=== PATIENT | female | born 1945 | race Caucasian/White ===

== ENCOUNTER 2016-08-04 05:19 | Inpatient (IN) | payer MEDICARE, BC ==
--- NOTE | 2016-07-15 16:47 | NUR ---
PMH, allergies, meds reviewed and documented. Preop and DOS instructions given including handouts of medications to stop before surgery, shower instructions and CHG, letter from Dr Mayen, ortho consent, Surgical Services pamphlet, and my contact information.
--- NOTE | 2016-07-21 14:00 | NUR ---
JOINT REPLACEMENT PREOP CLASS PATIENT ATTENDED JOINT REPLACEMENT PREOP CLASS. CASE MANAGEMENT CONTACT INFORMATION PROVIDED. EDUCATION WAS PROVIDED REGARDING WHAT TO EXPECT BEFORE, DURING AND AFTER SURGERY. INCLUDING: OVERVIEW OF ANATOMY AND PHYSIOLOGY HOSPITAL TREATMENT SCHEDULE THERAPY DEMONSTRATION CASE MANAGEMENT RESPONSIBILITIES DISCHARGE PLANNING EQUIPMENT NEEDS JOINT REPLACEMENT WORKBOOK ANTI-COAGULATION SURGERY STRONG NUTRITIONAL PROTOCOL DISCHARGE INSTRUCTIONS [facility] PAT[place] PORTAL, WITH INSTRUCTIONS CJR AND PREOP SURVERY PREOP BATHING- CHG GIVEN ALL PATIENT'S QUESTIONS ANSWERED TO THEIR SATISFACTION. PATIENTS AND COACHES ENCOURAGED TO CALL WITH ANY ADDITIONAL QUESTIONS OR CONCERNS. CM FOLLOWING FOR TRANSITIONAL CARE PLANNING NEEDS DURING HOSPITALIZATION.
[2016-08-04] VITALS (29 sets, daily range): BP systolic 109–173; BP diastolic 56–88; PULSE 68–101; RESP 12–17; TEMP 95.8–98.4; O2SAT 90–100; Ht 160 cm; Wt 76.4 kg
[~2016-08-04] VITALS: Ht 160 cm; Wt 76.4 kg
[~2016-08-04 05:19] MED LIST: ACET-3088 PO; ATEN25TA PO; BUPR300T59 PO; CALC600T12 PO; DIPH50CA44 PO; MONT10TA25 PO; SIMV20TA2 PO; SUCR1TAB PO; VITA1CAP PO
[2016-08-04] MEDS ORDERED: LIDOCAINE 1% (10mg/ml) 2ml SDV SQ ONE (06:00)
[2016-08-04] MEDS ORDERED: MELOXICAM 15 MG TABLET PO ONE (06:00)
[2016-08-04] MEDS ORDERED: FAMOTIDINE 20mg IVPB 50 ML IV ONE (06:00)
[2016-08-04] MEDS ORDERED: METOCLOPRAMIDE 10mg/2ml INJECTION IV ONE (06:00)
[2016-08-04] MEDS ORDERED: VANCOMYCIN 1 GRAM INJECTION ONE (06:56)
[2016-08-04] MEDS ORDERED: DEXAMETHASONE 4mg/ml - 1ml INJECTION IV ONE (07:00)
[2016-08-04] MEDS ORDERED: LR 1,000 ML IV SCH (07:00)
[2016-08-04] MEDS ORDERED: ONDANSETRON 4mg/2ml INJECTION IV ONE (07:00)
[2016-08-04] MEDS ORDERED: NOZIN NASAL SWAB NS ONE ×2 (07:00→09:45)
[2016-08-04] MEDS ORDERED: ACETAMINOPHEN 500 MG TABLET PO ONE (07:00)
--- NOTE | 2016-08-04 07:26 | PDHPBRIEF ---
History and Physical Update Date DATE: 08/04/16 TIME: 07:26 I evaluated this patient and found no changes in the history and clinical exam findings. The recommendations and treatment plan is also unchanged from the previous documentation. BARBY NORRIS Aug 04, 2016 07:26
[2016-08-04] MEDS ORDERED: MIDAZOLAM 2mg/2ml INJECTION ONE (07:37)
[2016-08-04] MEDS ORDERED: PROPOFOL 500mg 50 ML IV ONE (07:37)
[2016-08-04] MEDS ORDERED: DEXAMETHASONE 4mg/ml - 1ml INJECTION ONE (07:55)
[2016-08-04] MEDS ORDERED: SALINE FLUSH 10ml SYRINGE ONE (07:55)
[2016-08-04] MEDS ORDERED: ONDANSETRON 4mg/2ml INJECTION ONE (07:55)
[2016-08-04] MEDS ORDERED: PHENYLEPHRINE 10mg/ml INJECTION ONE (07:55)
[2016-08-04] MEDS ORDERED: CLINDAMYCIN 900mg IVPB 50 ML IV ONE (08:15)
[2016-08-04] MEDS ORDERED: TRANEXAMIC ACID 1,000 MG in NORMAL SALINE 100 ML IV ONE ×2 (08:15→09:15)
--- NOTE | 2016-08-04 08:35 | ANESPREOP ---
Anesthesia Record Date and Time * DATE: 08/04/16 TIME: 714 Proposed Surgical Procedure RT TKA Allergies: Coded Allergies: ceftriaxone (Verified Allergy, Unknown, HIVES, 08/04/16) Ht/Wt/BMI Height: 5 ' 3.00 " Weight: 70.900 kg BMI: 27.7 kg/m2 Vital Signs Date Time Temp Pulse Resp B/P Pulse Ox O2 Delivery O2 Flow Rate FiO2 08/04/16 05:40 98.4 76 14 173/76 97 Room Air Medications Inpatient Medications Current Medications Medications (Trade) Dose Ordered Sig/Rachna Start Time Stop Time Status Last Admin Dose Admin Lactated Ringer's (Lactated Ringers) 1,000 ml @ 50 mls/hr Q20H 08/04/16 07:00 08/04/16 06:36 50 MLS/HR Acetaminophen (Tylenol Arthritis) 650 Mg Tablet.er, 1 TAB PO DAILY, (Reported) Last Taken: on 08/03/16629 Atenolol (Atenolol) 25 Mg Tablet, 1 TAB PO DAILY, (Reported) Last Taken: on 08/04/16429 Bupropion HCl (Bupropion Xl) 300 Mg Tab.er.24h , 1 TAB PO DAILY, (Reported) Last Taken: on 08/03/16629 Calcium Carbonate (Calcium) 600 Mg Tablet, 1 TAB PO DAILY, (Reported) Last Taken: on 08/03/16629 Diphenhydramine HCl (Sleep Aid) 50 Mg Capsule, 1 CAP PO HS, (Reported) Last Taken: on 08/03/162199 Montelukast Sodium (Montelukast Sodium) 10 Mg Tablet, 10 MG PO DAILY, (Reported) Last Taken: on 08/03/16629 Simvastatin (Zocor) 20 Mg Tablet, 20 MG PO HS, (Reported) Last Taken: on 08/03/162199 Sucralfate (Sucralfate) 1 Gm Tablet, 1 GM PO ACHS, (Reported) Take 1 tablet, by mouth, 4 times a day (Before meals and at BEDTIME). Last Taken: on 08/03/162029 Vitamin B Complex (Vitamin B Complex) 1 Each Capsule, 1 CAP PO DAILY, (Reported) Last Taken: on 08/03/16629 Currently on Beta Christen: Yes Beta Christen Last Taken: 08-04-16 @ 0430 Medical/Surgical History Anesthesia PMH: Reports: Arthritis (knees; back), Asthma (ALLERGY RELATED-NO INHALERS FOR YEARS), Pneumonia (HX OF, LAST TIME 1996), Reflux (well controlled) , Denies: Anesthesia Reactions, CVA/Stroke/TIA, Cancer, Glaucoma, Malignant Hyperthermia, Sleep Apnea Smoking Status: Never smoker Use Chewing Tobacco?: No Substance Use Type: does not use Last Drink: hours (ago) (8) HX of Last Menstrual Period: MANY YEARS AGO Past Surgical History Orthopedic Surgeries: Yes - LT KNEE ARTHROSCOPY Abdominal Surgeries: Genitourinary Surgeries: Yes - REMOVAL BLADDER CYST Cardiac Surgeries: Endocrine Surgeries: Reproductive Surgeries: Yes - TUBAL LIGATION Neurological Surgeries: Ear Surgeries: Nose Surgeries: Throat Surgeries: Other Surgeries: Anesthesia Adverse Reactions: FOUND none Family Hx of Anesthesia Advers: none Hx of Motion Sickness: Yes Physical Exam Respiratory: Lungs clear Cardiovascular: FOUND Regular rate, rhythm Airway Assessment Mallampati Score: II TMD: 3 Fingerbreadths Neck Extension: Good Overall Assessment: No Airway Concerns ASA: 3 Plan Anesthesia Plan: TIVA Regional: Spinal Discussion Discussed risks/options/alternatives of anesthesia and questions answered. Patient consents. Nursing pain assessment noted. Present: Children, Spouse Attestation Statement Prior to the delivery of any anesthetic medication, I examined the patient, developed the plan, obtained the patient's consent and discussed the risk and benefits of the procedure with the patient/guardian. COLLIN JAMESON CRNA Aug 04, 2016 08:35
[2016-08-04] MEDS ORDERED: ONDANSETRON 4mg/2ml INJECTION IV PRN ×2 (08:45→09:45)
[2016-08-04] MEDS ORDERED: HYDROMORPHONE 2mg/ml INJECTION IV PRN (08:45)
[2016-08-04] MEDS ORDERED: EPINEPHRINE 0.25 MG, BUPIVACAINE 0.25% 75 MG, MORPHINE SULFATE 15 MG, KETOROLAC 60 MG i... INJ ONE ×5 (09:15)
--- NOTE | 2016-08-04 09:18 | PDOPERATE ---
Operative Report Date of Operation 08/04/16 Side: Right Preoperative Diagnosis: knee primary DJD Postoperative Diagnosis Same as preoperative diagnosis. Operation/Procedure: total knee arthroplasty (right) Surgeon Aj Mayen MD [employer] Lieutenant LENA Fong Complications None. Regional Block: Spinal Estimated Blood Loss See Anesthesia Record. Fluids Please See Anesthesia Record. Description of Operation Ms. Cuenca and her right knee were identified and marked in the the preoperative holding area. She was then brought back to the operating suite and proper anesthesia was administered. She was then positioned supine on the operating table. The right lower extremity was then prepped and draped in my normal sterile fashion. Timeout was performed with all operating room personnel. The leg was exsanguinated and tourniquet inflated 250 mmHg. A standard anterior incision followed by a medial parapatellar approach was utilized. The majority of her arthritis was underneath the patella as well as in the trochlea. A distal femoral cut was made in 5 of valgus using intramedullary guide. The femur was sized at a 3 and rotation set using the epicondylar axis. Distal femoral cuts were performed. The tourniquet was then let down. A proximal tibial cut was made using extramedullary guide. Remaining osteophytes and meniscus were removed. Gaps were checked and they were well balanced and rectangular after a partial release of the PCL and a larger medial release. Trial components were placed with a 9 mm spacer. This allowed for full range of motion and the patella tracked well. The knee was stable throughout range of motion. The patella was resurfaced with the knee in extension to a size 29. The tibia rotation was then marked and the tibia stamped at the proper rotation at a size 3. The bone was prepared for cementing and all components cemented into place and allowed to cure in extension. Betadine solution was used for 3 minutes during the curing period and then fully irrigated out with 1 L of normal saline. Hemostasis obtained with electrocautery. After the cement had cured the knee was taken through range of motion check for balance and stability which were good. Vancomycin powder was placed into the wound. The arthrotomy was closed with #1 Vicryl. The remainder of the wound was then closed by my animal assistant utilizing 2-0 vycral in the subcutaneous tissue. 4-0 monocryl was used in the subcuticular layer followed by dermabond and a sterile dressing. After closure the patient will be transferred to the recovery room under the care of anesthesia. NICOLE MAYEN MD Aug 04, 2016 09:18
[2016-08-04] MEDS ORDERED: HYDROMORPHONE 2mg/ml INJECTION ONE (09:35)
[2016-08-04] MEDS ORDERED: METOCLOPRAMIDE 10mg/2ml INJECTION IV PRN (09:45)
[2016-08-04] MEDS ORDERED: PRN ORDERS MC (09:45)
[2016-08-04] MEDS ORDERED: DiphenhydrAMINE 50 MG/ML INJECTION IV PRN (09:45)
[2016-08-04] MEDS ORDERED: DiphenhydrAMINE 25 MG CAPSULE PO PRN (09:45)
[2016-08-04] MEDS ORDERED: SENNOSIDES 8.6 MG TABLET PO PRN (09:45)
[2016-08-04] MEDS ORDERED: LORAZEPAM 1 MG TABLET PO PRN (09:45)
--- NOTE | 2016-08-04 10:09 | ANESPO ---
Post-Op Note Date 08/04/16 Time: 10:08 Status Pt Participated in Evaluation: Pt participated in person Vital Signs Date Time Temp Pulse Resp B/P Pulse Ox O2 Delivery O2 Flow Rate FiO2 08/04/16 05:40 98.4 76 14 173/76 97 Room Air Respiratory Function: Airway patent Cardiovascular Function: Regular pulse Mental Status: Alert/oriented Pain Level Intensity: 2 Unable to Assess Pain Due To: INTRA OP Hydration: Taking po fluids (ice chips) Complications during Recovery None apparent Follow-Up Instructions Instructions Per Surgeon COLLIN JAMESON CRNA Aug 04, 2016 10:09
--- NOTE | 2016-08-04 10:10 | ANESPD ---
Peripheral Nerve Blockade Physician: Nima Mayen MD Date: 08/04/16 Discussion Discussed risks/options/alternatives of anesthesia and questions answered. Patient consents. Nursing pain assessment noted. Block Start: 09:55 Block Stop: 10:02 Block Employed: Adductor Canal Indication: post-operative pain Approach: right side confirmed Position: supine Patient: Consent, risks/benefits discussed, Informed, post block act. discussed Monitors: EKG, SpO2, NIBP IV Sedation: No Sedation: Awake Initial Vital Signs First Documented Vital Signs Date Time Temp Pulse Resp B/P Pulse Ox O2 Delivery O2 Flow Rate FiO2 08/04/16 05:40 98.4 76 14 173/76 97 Room Air Post Vital Signs Vital Signs Date Time Temp Pulse Resp B/P Pulse Ox O2 Delivery O2 Flow Rate FiO2 08/04/16 05:40 98.4 76 14 173/76 97 Room Air Initial Pain Score: 2 Prep: chlorhexadine/ETOH Ultrasound Used?: Yes Injectate Ropivacaine (%): 0.5 Ropivacaine (mL): 20 Was Epi 1:200,000 Used?: No Injection Injection made incrementally with constant monitoring and aspiration every [5] ml. COLLIN JAMESON CRNA Aug 04, 2016 10:10
--- NOTE | 2016-08-04 10:35 | NUR ---
ARRIVAL PT TO ROOM 113 BY CART ACCOMPANIED BY PACU STAFF. PT TRANSFERRED SELF FROM CART TO BED. VS STABLE. PT ON RA. DENIES NAUSEA OR SOA. PT RATES PAIN AT 2/10. DENIES NEED FOR PAIN MEDICATION. PT HAS FULL FEELING IN LOWER EXTREMITIES. CALL LIGHT WITHIN REACH. BED ALARM ON. WILL CONTINUE TO MONITOR.
--- NOTE | 2016-08-04 10:48 | DI ---
Indication: ITS.REASON: POSTOP right knee replacement PROCEDURE: KNEE RIGHT 2 VIEW: Encounter: Initial Comparison: Right knee MRI dated June 30, 2016 Findings: Postoperative changes of right total knee replacement are seen. There is expected postoperative subcutaneous gas. No evidence of hardware failure or acute fracture. No retained radiopaque surgical instruments or sponges. Overlying material causing artifact. Impression: New right total knee prosthesis without evidence of immediate complication. .
[2016-08-04] MEDS: NORMAL SALINE 1,000 ML IV SCH (10:53)
--- NOTE | 2016-08-04 11:09 | NUR ---
CM CM IN TO VISIT WITH PT. SHE IS ALERT AND ORIENTED. HER SPOUSE IS PRESENT. PT PLANS TO RETURN HOME. SHE WILL DO OUTPT PT AT [facility]. SHE HAS FWW. SHE IS GIVEN CM CONTACT INFORMATION. Addendum: 08/04/16 at 1110 by YIFAN DE LA ROSA RN Amended: Links added.
[2016-08-04] MEDS: TRAMADOL 50 MG TABLET PO PRN ×3 (11:10→21:02)
[2016-08-04] MEDS: SUCRALFATE 1 G TABLET PO SCH ×3 (12:13→21:01)
[2016-08-04] MEDS: ACETAMINOPHEN 325 MG TABLET PO SCH ×3 (12:14→21:01)
[2016-08-04] MEDS: NOZIN NASAL SWAB NS SCH ×2 (14:03→21:02)
[2016-08-04] MEDS: CLINDAMYCIN 900mg IVPB 50 ML IV SCH ×2 (14:03→20:39)
--- NOTE | 2016-08-04 16:25 | NUR ---
STATUS PT A/O X3. UP WITH ASSIST OF ONE WITH WALKER AND GAIT BELT. PT AMBULATING VERY WELL. RATES PAIN 2-4/10. REQUESTS PAIN MEDICATION WHEN PAIN REACHES 4/10. DENIES NAUSEA, TOLERATING LIQUID AND PUDDING. WILL TRY REGULAR DIET AT SUPPER. PT ON RA, TOLERATING WELL. VS STABLE. PT ABLE TO VOID WITHOUT PROBLEM, ADEQUATE OUTPUT. VERY PLEASANT WITH ALL CARES. PT RESTING IN BED WITH ALARM. CALL LIGHT WITHIN REACH. WILL CONTINUE TO MONITOR.
[2016-08-04] MEDS: ASPIRIN *EC* 325mg TABLET PO SCH (21:01)
[2016-08-04] MEDS ORDERED: SENNOSIDES 8.6 MG TABLET PO SCH (22:00)
[2016-08-04] MEDS ORDERED: SIMVASTATIN 20 MG TABLET PO SCH (22:00)
[2016-08-05] VITALS: BP 112/65; PULSE 89; RESP 16; TEMP 95.9; O2SAT 98
[2016-08-05] MEDS: NORMAL SALINE 1,000 ML IV SCH (00:53)
[2016-08-05] MEDS: TRAMADOL 50 MG TABLET PO PRN ×2 (01:41→10:27)
[2016-08-05] MEDS: CLINDAMYCIN 900mg IVPB 50 ML IV SCH (02:16)
--- NOTE | 2016-08-05 02:49 | NUR ---
Chart Check 24 hour chart check completed
[2016-08-05 03:57] VITALS: BP 106/64; PULSE 91; RESP 14; TEMP 97.8; O2SAT 99
[2016-08-05 05:16] LABS: HCT - HEMATOCRIT 28.2 % (36-46); HGB - HEMOGLOBIN 9.6 GM/DL (12-16); MEAN CORPUSCULAR HGB 29.1 UUG (26-34); MEAN CORPUSCULAR VOLUME 85.5 UM3 (80-100); MEAN PLATELET VOLUME 10.4 UM3 (9.4-12.4); RED BLOOD COUNT 3.3 M/MM3 (4.00-5.20)
[2016-08-05 05:27] LABS: ANION GAP 9 MEQ/L (5-15); BUN/CREATININE RATIO 26 RATIO (6-26); CALCIUM 8.7 MG/DL (8.4-10.2); CHLORIDE 109 MEQ/L (98-107); CO2 - CARBON DIOXIDE 23 MEQ/L (22-30); GLOMERULAR FILTRATION RATE 55; GLUCOSE 144 MG/DL (65-110); POTASSIUM 4.3 MEQ/L (3.6-5); SODIUM 141 MEQ/L (134-144)
[2016-08-05] MEDS: SUCRALFATE 1 G TABLET PO SCH ×2 (06:00→12:01)
[2016-08-05] MEDS: NOZIN NASAL SWAB NS SCH (06:00)
--- NOTE | 2016-08-05 06:11 | NUR ---
STATUS PATIENT A/OX3. PATIENT C/O PAIN AT RT KNEE, RATED 2-4/10. PRN TRAMADOL WAS GIVEN .PATIENT IS ABLE SLEEP OFF AND ON BETWEEN CARES.ON ROOM AIR. DENIES CHEST PAIN,SOA,OR N/V. PATIENT AMBULATED TO BATHROOM WITH WALKER BY ONE STANDBY ASSISI. ADEQUATE URINARY OUTPUT. POLAR PAD USED AT RT KNEE.HONEY GRAHAMS CRACKERS AND PEANUT BUTTER WAS GIVEN PER PATIENT REQUESTED. BED ALARM ON. CONTINUE TO MONITOR.
[2016-08-05 08:00] VITALS: PULSE 91; RESP 14
[2016-08-05] MEDS: MELOXICAM 15 MG TABLET PO SCH ×2 (08:00→08:12)
[2016-08-05] MEDS: ASPIRIN *EC* 325mg TABLET PO SCH (08:11)
[2016-08-05] MEDS: ACETAMINOPHEN 325 MG TABLET PO SCH ×2 (08:14→12:44)
[2016-08-05 08:32] VITALS: BP 125/60; PULSE 100; RESP 18; TEMP 96.9; O2SAT 99
--- NOTE | 2016-08-05 08:35 | PDORTHOPN ---
Subjective Date DATE: 08/05/16 TIME: 08:30 Subjective Cindi is doing very well. Pain is very minimal. No major complaints. She anticipates discharge today. Objective Vital Signs Vital signs Vital Signs 08/04/16 08/04/16 08/05/16 08/05/16 21:39 23:24 00:00 03:57 Temp 95.8 97.1 95.9 97.8 Pulse 101 94 89 91 Resp 16 16 14 B/P 150/78 126/69 112/65 106/64 Pulse Ox 98 98 98 99 O2 Delivery Room Air Room Air Room Air Room Air Height (Feet): 5 Height (Inches): 3.00 Weight (Kilograms): 70.900 General General Appearance: No Acute Distress Respiratory (Brief) Respiratory Brief: FOUND: non-labored Cardiovascular (Brief) Cardiac: FOUND: pedal pulses intact Surgical Site Incision: FOUND: Mepilex dressing intact, no drainage Neurologic (Brief) Neurological Brief: FOUND: extremities w/o deficits, neuro intact Psychiatric (Brief) Psychiatric Brief: FOUND: alert, no acute distress Laboratory Laboratory Laboratory Tests 08/05/16 04:49 Laboratory Tests 08/05/16 04:49 Assessment & Plan Problems: (1) Degenerative arthritis of right knee Status: Chronic Qualifiers: Osteoarthritis type: primary Qualified Codes: M17.11 - Unilateral primary osteoarthritis, right knee Assessment & Plan: Aspirin protocol for VTE prophylaxis. SCD's. PT/OT services to improve independent function. Discharge Planning per Case Management. D/C [facility] due to intolerance in the past. Hospital Course Summary Disclaimer The visit summary below is not to be considered part of the above Progress Note. BARBY NORRIS Aug 05, 2016 08:34
[2016-08-05] MEDS ORDERED: MONTELUKAST 10 MG TABLET PO SCH (09:00)
[2016-08-05] MEDS ORDERED: BuPROPion XL (24 HR) 300 MG TABLET PO SCH (09:00)
[2016-08-05] MEDS ORDERED: POLYETHYL.GLYCOL 3350 PACKET 17gm PO SCH (09:00)
[2016-08-05] MEDS ORDERED: ATENOLOL 25 MG TABLET PO SCH (09:00)
[2016-08-05] MEDS ORDERED: DOCUSATE SODIUM 100 MG CAPSULE PO SCH (09:00)
[2016-08-05] MEDS ORDERED: CALCIUM CARBONATE 600 MG TABLET PO SCH (09:00)
--- NOTE | 2016-08-05 09:07 | NUR ---
SUSANA CM IN TO VISIT WITH PT. SHE IS ALERT AND ORIENTED. EMANUEL, MERCANTILE REPORTER IS PRESENT. PT PLANS TO DC HOME. SHE WILL DO OUTPT PT AT [facility]. LACE SCORE IS 6. NO FURTHER INTERVENTION NEEDED. Addendum: 08/05/16 at 0909 by YIFAN DE LA ROSA RN Amended: Links added.
[2016-08-05 09:42] VITALS: PULSE 87; RESP 16
[2016-08-05] MEDS ORDERED: ASPI-917 PO (12:16)
[2016-08-05] MEDS ORDERED: TRAM50TA53 PO (12:16)
[2016-08-05] MEDS ORDERED: POLY17PO6 PO (12:16)
[2016-08-05] MEDS ORDERED: ACET-2321 PO (12:16)
[2016-08-05] MEDS ORDERED: DOCU-168 PO (12:16)
--- NOTE | 2016-08-05 12:20 | DSPDOC ---
General Date Date DATE: 08/05/16 TIME: 12:18 Attending Physician Nima Mayen MD Admitting Physician Nima Mayen MD Consulting Physician Admitting Diagnosis PRIMARY DEGENERATIVE JOINT DISEASE RIGHT KNEE Discharge Diagnosis Primary DJD right knee Procedures Right total knee arthroplasty History of Present Illness HPI Elements This patient was admitted for elective surgical tx of end stage degenerative joint disease that failed to respond to conservative treatment. Further details of this is found in the admission H&P. Hospital Course After appropriate preoperative clearance and signing of operative consent, the patient was given IV antibiotics, according to orthopedic protocol. The patient was taken to the operating room and underwent elective right total knee arthroplasty. Following surgery, antibiotics were discontinued less than 24 hours according to joint protocol. Aspirin was initiated and SCDs added for DVT prevention. The dressing was clean, dry, and intact. Pain control was obtained via multimodal approach. Bowel motivation addressed with scheduled and PRN medications. Early mobilization was initiated through PT services. Discharge arrangements made by a collaborative effort between the patient and Case Management. Follow-up is scheduled in 2-3 weeks. Discharge instructions given by orthopedic providers and nursing staff at discharge. Discharge condition was good. Problems: (1) Degenerative arthritis of right knee Status: Chronic Assessment & Plan: Aspirin protocol for VTE prophylaxis. SCD's. PT/OT services to improve independent function. Discharge Planning per Case Management. D/C [facility] due to intolerance in the past. Ongoing Care Required?: No Laboratory Laboratory Tests Test 08/05/16 04:49 White Blood Count 8.0T/MM3 Red Blood Count 3.30M/MM3 Hemoglobin 9.6GM/DL Hematocrit 28.2% Mean Corpuscular Volume 85.5UM3 Mean Corpuscular Hemoglobin 29.1UUG Mean Corpuscular Hemoglobin Concent 34.0GM/DL RDW Standard Deviation 38.5FL Platelet Count 159T/MM3 Mean Platelet Volume 10.4UM3 Turbidity < 20 Sodium Level 141MEQ/L Potassium Level 4.3MEQ/L Chloride Level 109MEQ/L Carbon Dioxide Level 23MEQ/L Anion Gap 9MEQ/L Blood Urea Nitrogen 26.0MG/DL Creatinine 1.0MG/DL Glomerular Filtration Rate Calc 55 BUN/Creatinine Ratio 26RATIO Glucose Level 144MG/DL Calculated Osmolality 279MOSM/KG Calcium Level 8.7MG/DL Icterus Index < 2 Chemistry Specimen Hemolysis < 15 Home Meds Active Scripts Polyethylene Glycol 3350 (Miralax) 17 Gm Powd.pack, 17 G PO DAILY Y for CONSTIPATION, #1 BOTTLE Take 17 Grams (1 capful), by mouth, once a day. Prov:BARBY NORRIS 08/05/16 Docusate Sodium (Colace) 100 Mg Capsule, 100 MG PO BID, #60 CAP Prov:BARBY NORRIS 08/05/16 Tramadol HCl (Ultram) 50 Mg Tablet, 50-100 MG PO Q4H Y for PAIN, #60 TAB Prov:BARBY NORRIS 08/05/16 Aspirin *EC* (Aspirin EC) 325 Mg Tablet.dr, 325 MG PO BID, #84 TAB Take this twice a day for 6 weeks. Prov:BARBY NORRIS 08/05/16 Acetaminophen (Tylenol) 325 Mg Tablet, 650 MG PO QID, #60 TAB Prov:BARBY NORRIS 08/05/16 Reported Medications Vitamin B Complex (Vitamin B Complex) 1 Each Capsule, 1 CAP PO DAILY 07/15/16 Bupropion HCl (Bupropion Xl) 300 Mg Tab.er.24h, 1 TAB PO DAILY 07/15/16 Montelukast Sodium (Montelukast Sodium) 10 Mg Tablet, 10 MG PO DAILY 07/15/16 Sucralfate (Sucralfate) 1 Gm Tablet, 1 GM PO ACHS, TAB Take 1 tablet, by mouth, 4 times a day (Before meals and at BEDTIME). 07/15/16 Simvastatin (Zocor) 20 Mg Tablet, 20 MG PO HS 07/15/16 Atenolol (Atenolol) 25 Mg Tablet, 1 TAB PO DAILY, TAB 07/15/16 Calcium Carbonate (Calcium) 600 Mg Tablet, 1 TAB PO DAILY 07/15/16 Diphenhydramine HCl (Sleep Aid) 50 Mg Capsule, 1 CAP PO HS 07/15/16 Discontinued Reported Medications Acetaminophen (Tylenol Arthritis) 650 Mg Tablet.er, 1 TAB PO DAILY 07/15/16 Discharge Disposition Please refer to Case Management Notes for patient's disposition. Estimated Blood Loss 50.0 BARBY NORRIS Aug 05, 2016 12:20
--- NOTE | 2016-08-05 12:22 | NUR ---
IV DISCONTINUED, CATHETER INTACT. PT HAD BLEEDING THAT REQUIRED ADDITIONAL 2 MIN OF PRESSURE WITH ARM ELEVATED. WILL CONTINUE TO MONITOR.
[2016-08-05 12:24] VITALS: BP 129/69; PULSE 79; RESP 16; TEMP 97.7; O2SAT 100
--- NOTE | 2016-08-05 12:50 | NUR ---
STATUS/DISCHARGE PT A&OX3. PROVIDED PRN TRAMADOL PRIOR TO GROUP THERAPY. PT RATING PAIN AT DISCHARGE 1-06/26. PT TOLERATED AMBULATION TO THERAPY WELL. SN REVIEWED DISCHARGE INSTRUCTIONS WITH PT AND WITH RN SUPERVISION, ANSWERING ALL QUESTIONS. IV SITE DISCONTINUED, CATHETER INTACT, SITE IS ASYMPTOMATIC WITH EXCEPTION TO BLEED REQUIRING ADDITIONAL 2 MIN OF PRESSURE AND FRESH DRESSING. SENT PRESCRIPTIONS FOR ULTRAM AND 325 MG ASP WITH PT. PT AMBULATED TO ED ENTRANCE WITH SN ASSIST. PT ENTERED FAMILY CAR WITH DRIVING.
[2016-08-06] MEDS ORDERED: MILK OF MAGNESIA 30 ML SUSP PO SCH (08:00)
[2016-08-06] MEDS ORDERED: BISACODYL 10 MG SUPPOSITORY RECTALLY SCH (20:00)
== END 2016-08-05 12:55 | disposition home or self-care (01) | DRG 470 ==
LOC: SRG 05:19
PROVIDERS: ADMIT Orthopaedic Surgery; ATTEND Orthopaedic Surgery
PROC: 0SRC0J9 Replacement of Right Knee Joint with Synthetic Substitute, Cemented, Open Approach (ICD-10-PCS; principal; 2016-08-04 08:07)
DX: M17.11 Unilateral primary osteoarthritis, right knee (principal); E78.00 Pure hypercholesterolemia, unspecified; K21.9 Gastro-esophageal reflux disease without esophagitis; F40.240 Claustrophobia
CPT/HCPCS: 36415; 80048; 82948; 85027